=== PATIENT | female | born 1990 | race Caucasian/White ===

== ENCOUNTER 2017-05-25 09:16 | Emergency (ER) | payer BC ==
[2017-05-25] MEDS ORDERED: Ondansetron HCl/PF 4 MG/2 ML Vial ONE ×2 (09:44→09:47)
[2017-05-25 09:49] LABS: #Lymphocytes 1.3 thou/uL (1.20-3.40); #Monocytes 0.5 thou/uL (0.11-0.59); #Neutrophils 4.1 thou/uL (1.40-6.50); %Basophils 0.6 % (0.0-1.0); %Eosinophils 0.4 % (0.0-10.0); %Lymphocytes 21.7 % (21.0-51.0); %Monocytes 8.6 % (0.0-10.0); %Neutrophils 68.7 % (42.0-75.0); Hemoglobin 13.3 g/dL (12.0-16.0); Mean Corpuscular HGB CONC 32.9 g/dL (32.0-36.0); Mean Corpuscular Hemoglobin 27.9 pg (27.0-31.0); Mean Corpuscular Volume 84.8 fl (81.0-99.0); Mean Platelet Volume 8.4 fL (7.4-10.4); Platelet Count 190 thou/uL (130-400); RBC Distribution Width 12.1 % (11.5-14.5); Red Blood Cell (RBC) Count 4.78 mill/uL (4.20-5.40); White Blood Cell (WBC) Count 5.9 thou/uL (4.8-10.8)
[2017-05-25 10:15] LABS: ALT (SGPT) 13 U/L (8-55); AST (SGOT) 19 U/L (5-34); Albumin 4.6 g/dL (3.5-5.0); Alkaline Phosphatase 53 U/L (40-150); Anion Gap 15 mmol/L (10-20); BUN (Urea Nitrogen) 16 mg/dL (7.0-18.7); Bilirubin, Total 0.4 mg/dL (0.2-1.2); Calc. Creatinine Clearance 0 mL/min (70-130); Calcium 9.7 mg/dL (7.8-10.44); Carbon Dioxide 18 mmol/L (22-29); Chloride 107 mmol/L (98-107); Estimated GFR-MDRD Greater than 90; Globulin 3.3 g/dL (2.4-3.5); Glucose 97 mg/dL (70-105); Lipase 13 U/L (8-78); Potassium 3.9 mmol/L (3.5-5.1); Protein, Total 7.9 g/dL (6.0-8.3); Sodium 136 mmol/L (136-145)
--- NOTE | 2017-05-25 10:35 | ULT ---
PELVIC ULTRASOUND: Date: 05/25/17 HISTORY: Pelvic pain. Patient has history of ovarian cyst. COMPARISON: None. TECHNIQUE: Transabdominal and endovaginal imaging of the pelvis is performed. Ovaries are interrogated with Lawler scale, color flow, Doppler imaging, and spectral waveform analysis. FINDINGS: Uterus is identified. There are no myometrial masses. Uterus measures 3.4 x 4.4 x 6.8 cm. The endometrium has a homogeneous echotexture and measures 1.1 cm. Right ovary has a normal echotexture. No evidence of cyst or dominant follicle. Right ovary measures 2.0 x 1.8 x 2.6 cm. Left ovary has a normal echotexture. Left ovary measures 3.3 x 1.4 x 1.4 cm. There is a small amount of free fluid in the cul-de-sac. There is vascular flow to both ovaries. IMPRESSION: Unremarkable pelvic ultrasound. POS: [facility]
== END 2017-05-25 11:19 | disposition home or self-care (01) ==
LOC: ERS 09:16
DX: N83.201 Unspecified ovarian cyst, right side (principal); F32.9 Major depressive disorder, single episode, unspecified; Z79.899 Other long term (current) drug therapy
CPT/HCPCS: 76856; 80053; 83690; 85025; 96374; J2405

== ENCOUNTER 2019-01-10 08:59 | Outpatient (CLI) | payer BC ==
--- NOTE | 2019-01-10 10:09 | RAD ---
Procedure: Hysterosalpingogram Preprocedure diagnosis: Infertility Line Repairer Tower: Ranjan TECHNIQUE: Prior to the procedure, the risks and benefits of a hysterosalpingogram were explained to the patient which consented fully to the procedure. A physical exam was performed identifying the cervix. A speculum was then placed identifying the cerv ix. The external os of the cervix was prepped with Betadine. A hysterosalpingogram catheter was then placed through the cervix and the balloon was insufflated within the uterus. Contrast was administered which adequately distended the uterus. No uterine filling defects are seen. There is no evidence of uterine septations. Contrast passed down both fallopian tubes which were normal in appearance. Spillage was seen on both sides. The patient tolerated the procedure well without immediate post procedure complication. IMPRESSION: Unremarkable hysterosalpingogram
[2019-01-10] MEDS ORDERED: Iopamidol 300 61% 50 ML VIAL FS ONE (11:44)
== END 2019-01-10 09:00 | disposition home or self-care (01) ==
LOC: RAD 08:59
PROVIDERS: ATTEND Obstetrics & Gynecology
DX: Z31.41 Encounter for fertility testing (principal)
CPT/HCPCS: 58340; 74740; Q9967

== ENCOUNTER 2019-04-07 00:33 | Emergency (ER) | payer BC ==
[2019-04-07 01:01] LABS: #Basophils 0.1 thou/uL (0.0-0.2); #Eosinphils 0.1 thou/uL (0.0-0.7); #Lymphocytes 0.9 thou/uL (1.20-3.40); #Monocytes 1.1 thou/uL (0.11-0.59); #Neutrophils 6.4 thou/uL (1.40-6.50); %Basophils 0.8 % (0.0-1.0); %Eosinophils 0.7 % (0.0-10.0); %Lymphocytes 10.2 % (21.0-51.0); %Monocytes 12.7 % (0.0-10.0); %Neutrophils 75.6 % (42.0-75.0); Hemoglobin 13.9 g/dL (12.0-16.0); Mean Corpuscular HGB CONC 32.6 g/dL (32.0-36.0); Mean Corpuscular Hemoglobin 27.3 pg (27.0-31.0); Mean Corpuscular Volume 83.8 fL (78.0-98.0); Mean Platelet Volume 8.5 fL (7.4-10.4); Platelet Count 182 thou/uL (130-400); RBC Distribution Width 12.1 % (11.5-14.5); White Blood Cell (WBC) Count 8.5 thou/uL (4.8-10.8)
[2019-04-07 01:02] LABS: BHCG - Serum Negative (NEGATIVE); Pregs Control Background? CLEAR/WHITE (CLR/WHITE); Pregs Control Bar Appear? YES (CONTROL BAR)
[2019-04-07] MEDS ORDERED: Fentanyl 100 MCG/2 ML VIAL ONE (01:18)
[2019-04-07] MEDS ORDERED: Ketorolac Tromethamine 30 MG/ML VIAL ONE (01:19)
[2019-04-07] MEDS ORDERED: Promethazine HCl 25 MG/ML VIAL ONE (01:19)
[2019-04-07 01:23] LABS: ALT (SGPT) 18 U/L (8-55); AST (SGOT) 21 U/L (5-34); Albumin 4.6 g/dL (3.5-5.0); Alkaline Phosphatase 61 U/L (40-110); Anion Gap 17 mmol/L (10-20); BUN (Urea Nitrogen) 18 mg/dL (7.0-18.7); Bilirubin, Total 0.9 mg/dL (0.2-1.2); CK (CPK) 100 U/L (29-168); Calc. Creatinine Clearance 0 mL/min (70-130); Calcium 9.9 mg/dL (7.8-10.44); Carbon Dioxide 14 mmol/L (22-29); Chloride 109 mmol/L (98-107); Estimated GFR-MDRD 90; Globulin 3.3 g/dL (2.4-3.5); Glucose 161 mg/dL (70-105); Lipase 22 U/L (8-78); Potassium 3.8 mmol/L (3.5-5.1); Protein, Total 7.9 g/dL (6.0-8.3); Sodium 136 mmol/L (136-145)
[2019-04-07 02:12] LABS: Bacteria/HPF None Seen HPF (None Seen); Bilirubin Negative (Negative); Blood, Urine 3+ (Negative); Clarity Clear (Clear); Glucose, Urine (Dipstick) Normal (Negative); Leukocyte Negative Leu/uL (Negative); Nitrite Negative (Negative); Protein, Urine (Dipstick) 30 mg/dL (Neg-Trace); Urobilinogen Normal mg/dL (Less than 2)
--- NOTE | 2019-04-07 08:50 | ULT ---
PRELIMINARY REPORT/[facility]/EMERGENCY AFTER HOURS PROCEDURE: EXAM: US Pelvis, Complete. CLINICAL HISTORY: HX: PELVIC PAIN, TECHNIQUE: Transvaginal pelvic ultrasound (complete) with image documentation. COMPARISON: None provided. FINDINGS: ENDOMETRIUM: Normal thickness. Measures 8.9 mm UTERUS/CERVIX: Normal size and contour. No fibroid detected. Measures 6.9 x 3.3 x 4.3 cm RIGHT OVARY: Normal follicles. No adnexal mass. Normal blood flow. Measures 2.6 x 2.2 x 1.9 cm LEFT OVARY: Normal follicles. No adnexal mass. Normal blood flow. Measures 3.1 x 1.9 x 1.2 cm FREE FLUID: No free fluid. IMPRESSION: Unremarkable pelvic ultrasound. ELECTRONICALLY SIGNED BY: Fabrice Boogie MD Apr 07, 2019 2:21:23 AM CLINICAL RESEARCH PHYSICIAN This report is intended for review by the ordering physician only, in accordance of law. If you recei ve this report in error, please call [facility] at [phone]. FINAL REPORT PELVIC ULTRASOUND: DATE: 04/07/2019. COMPARISON: None. HISTORY: Pelvic pain. TECHNIQUE: Multiplanar shrestha scale sonographic imaging of the pelvis obtained with transvaginal imaging. Ovaries are assessed with color flow and spectral analysis. FINDINGS: The uterus measures 6.9 x 3.4 x 4.3 cm with an endometrial stripe of 9 mm, within normal limits. No free fluid is seen in the pelvis. The left ovary measures 3.2 x 2.0 x 1.2 cm and demonstrates normal blood flow without evidence for a mass. The right ovary measures 2.6 x 2.2 x 2.0 cm and demonstrates normal blood flow without evidenc e for mass. IMPRESSION: Unremarkable pelvic ultrasound. POS: [facility]
== END 2019-04-07 03:07 | disposition home or self-care (01) ==
LOC: ERS 00:33
DX: E86.0 Dehydration (principal); R19.7 Diarrhea, unspecified; R11.2 Nausea with vomiting, unspecified; F41.9 Anxiety disorder, unspecified; F32.9 Major depressive disorder, single episode, unspecified; Z79.899 Other long term (current) drug therapy
CPT/HCPCS: 36415; 76856; 80053; 81003; 81015; 82550; 83690; 84703; 85025; 87077; 87086; 93005; 96361; 96365; 96375; J1885; J2550; J3010